=== PATIENT | female | born 1990 | race African-American/Black ===

== ENCOUNTER 2018-07-04 23:25 | Emergency (ER) | payer OTHER ==
[~2018-07-04] VITALS: Ht 165.1 cm; Wt 116.0 kg
[2018-07-04 23:37] VITALS: BP 137/83
[2018-07-05] MEDS ORDERED: CEFTRIAXONE SODIUM 250 MG/VIAL IM ONE (00:15)
[2018-07-05] MEDS ORDERED: LIDOCAINE HCL 1% 20ML VIAL (Pyxis) INJ INFIL ONE (00:15)
[2018-07-05] MEDS ORDERED: AZITHROMYCIN 500 MG TABLET PO ONE (00:15)
== END 2018-07-05 01:14 | disposition home or self-care (01) ==
LOC: ER 23:25
DX: Z20.2 Contact with and (suspected) exposure to infections with a predominantly sexual mode of transmission (principal); R03.0 Elevated blood-pressure reading, without diagnosis of hypertension
CPT/HCPCS: 81025; 96372; 99283; J0696; J3490; Z7610

== ENCOUNTER 2018-08-24 17:09 | Emergency (ER) | payer OTHER ==
[~2018-08-24] VITALS: Ht 165.1 cm; Wt 114.0 kg
[2018-08-24 19:52] VITALS: BP 120/89
== END 2018-08-24 19:54 | disposition home or self-care (01) ==
LOC: ER 18:02
DX: H66.42 Suppurative otitis media, unspecified, left ear (principal)
CPT/HCPCS: 99282; 99283